=== PATIENT | male | born 1980 | race Caucasian/White ===

== ENCOUNTER 2019-05-11 15:14 | Emergency (ER) | payer MEDICAID, OTHER ==
[~2019-05-11] VITALS: Ht 175.3 cm; Wt 116.0 kg
[~2019-05-11 15:14] MED LIST: ARIP5TAB14 PO; ESCI20TA PO; HYDR-3972 PO
[2019-05-11 15:16] VITALS: BP 164/109
[2019-05-11] MEDS ORDERED: amox tr/potassium clavulanate 875/125mg TAB PO ONE (15:30)
[2019-05-11] MEDS ORDERED: AMOX-422 PO (15:31)
[2019-05-11] MEDS ORDERED: NAPR-56 PO (15:31)
[2019-05-11] MEDS ORDERED: HYDR-4383 PO (15:31)
[2019-05-15] MEDS ORDERED: DIPH25CA83 PO (15:16)
[2019-05-15] MEDS ORDERED: CLIN150C2 PO (15:19)
== END 2019-05-11 15:42 | disposition home or self-care (01) ==
LOC: ER 15:14
DX: K02.9 Dental caries, unspecified (principal); F10.10 Alcohol abuse, uncomplicated; F12.90 Cannabis use, unspecified, uncomplicated; Z60.2 Problems related to living alone; Z56.0 Unemployment, unspecified; Z79.899 Other long term (current) drug therapy; Y90.9 Presence of alcohol in blood, level not specified
CPT/HCPCS: 99283

== ENCOUNTER → 2019-05-15 | Emergency (ER) | payer MEDICAID ==
[~2019-05-15] VITALS: Ht 175.3 cm; Wt 115.5 kg
[~2019-05-15] MED LIST changes: +AMOX-422 PO; +CLIN150C2 PO; +DIPH25CA83 PO; +HYDR-4383 PO; +NAPR-56 PO; +PRED20TA PO; +diphenhydrAMINE 25mg capsule PO ONE
[2019-05-15 15:40] VITALS: BP 120/85
== END | disposition home or self-care (01) ==
LOC: ER 13:46
DX: L27.0 Generalized skin eruption due to drugs and medicaments taken internally (principal); T36.0X5A Adverse effect of penicillins, initial encounter; R06.02 Shortness of breath; F10.10 Alcohol abuse, uncomplicated; F12.90 Cannabis use, unspecified, uncomplicated; Z60.2 Problems related to living alone; Z56.0 Unemployment, unspecified; Z79.899 Other long term (current) drug therapy; Y90.9 Presence of alcohol in blood, level not specified; Y92.89 Other specified places as the place of occurrence of the external cause
CPT/HCPCS: 99283; Q0163

== ENCOUNTER 2019-05-17 11:42 | Emergency (ER) | payer MEDICAID ==
[~2019-05-17] VITALS: Ht 175.3 cm; Wt 115.0 kg
[~2019-05-17 11:42] MED LIST changes: -PRED20TA PO; -diphenhydrAMINE 25mg capsule PO ONE
[2019-05-17 11:54] VITALS: BP 169/120
[2019-05-17] MEDS ORDERED: methylPREDNISolone sod succ 125mg/2ml vial IV ONE (12:20)
[2019-05-17] MEDS ORDERED: methylPREDNISolone sod succ 125mg/2ml vial IM ONE (12:20)
[2019-05-17] MEDS ORDERED: PRED20TA PO (12:20)
== END 2019-05-17 12:36 | disposition home or self-care (01) ==
LOC: ER 11:43
DX: R21 Rash and other nonspecific skin eruption (principal); T36.0X5A Adverse effect of penicillins, initial encounter; F12.90 Cannabis use, unspecified, uncomplicated; Z56.0 Unemployment, unspecified; Z79.899 Other long term (current) drug therapy; Y92.89 Other specified places as the place of occurrence of the external cause
CPT/HCPCS: 96372; 99283; J2930

== ENCOUNTER 2019-05-27 23:00 | Emergency (ER) | payer MEDICAID ==
[~2019-05-27] VITALS: Ht 175.3 cm; Wt 113.0 kg
[~2019-05-27 23:00] MED LIST changes: -AMOX-422 PO; -CLIN150C2 PO
--- NOTE | 2019-05-27 23:21 | NUR ---
MARICRUZ LU AT BEDSIDE PATIENT STATES " I HAVE BEEN DRINKING THE HARD STUFF." PATIENT APPEARS TO HAVE BEEN ON A SOBRIETY PROGRAM AND HAD BEEN DRINKING, [facility] PA[facility] FOR [facility] "TRYING TO [facility]." WHEN THE PATIENT STARTED VOMITING, [facility] STATING PATIENT WAS VOMITING BLOOD, EMS DENIES SEEING BLOOD IN [facility], PATIENT HAS NOT VOMITED SINCE [facility] WILL CONTINUE TO MONITOR
[2019-05-27] MEDS ORDERED: normal saline 1000ML IV soln IV ONE (23:25)
[2019-05-27] MEDS ORDERED: proCHLORperazine 10 MG/2 ml inj IV ONE (23:25)
[2019-05-27 23:26] LABS: EOSINOPHILS # (AUTO) 0.5 X10'3 (0-0.9); NEUTROPHILS # (AUTO) 6.2 X10'3 (1.8-7.7); WHITE BLOOD COUNT 10.4 X10'3 (4.5-11.0)
[2019-05-27 23:28] LABS: BASOPHILS # (AUTO) 0.2 X10'3 (0-0.2); BASOPHILS % (AUTO) 1.5 % (0-1); EOSINOPHILS % (AUTO) 5.1 % (0-6); HEMATOCRIT 42.5 % (42.0-52.0); HEMOGLOBIN 14.9 g/dl (14.0-17.9); LYMPHOCYTES # (AUTO) 2.8 X10'3 (1.1-4.8); LYMPHOCYTES % (AUTO) 27.1 % (21-51); MEAN CORPUSCULAR HEMOGLOBIN 31.9 PG (27.0-31.0); MEAN CORPUSCULAR HGB CONC 35.2 g/dL (33.0-36.5); MEAN CORPUSCULAR VOLUME 90.6 FL (78-98); MEAN PLATELET VOLUME 8.3 FL (7.4-10.4); MONOCYTES # (AUTO) 0.7 X10'3 (0-0.9); MONOCYTES % (AUTO) 6.6 % (2-12); NEUTROPHILS % (AUTO) 59.7 % (42-75); PLATELET COUNT 277 X10'3 (140-440); RED BLOOD COUNT 4.69 X10'6 (4.70-6.10); RED CELL DISTRIBUTION WIDTH 14.2 % (11.5-14.5)
[2019-05-27 23:38] LABS: ALANINE AMINOTRANSFERASE 53 U/L (12-78); ALBUMIN 3.7 G/DL (3.4-5.0); ALBUMIN/GLOBULIN RATIO 0.9 (1.1-1.5); ALKALINE PHOSPHATASE 95 IU/L (46-116); ANION GAP 15 (8-16); ASPARTATE AMINO TRANSFERASE 5 U/L (10-37); BILIRUBIN,TOTAL 0.4 MG/DL (0.1-1.0); BLOOD UREA NITROGEN 13 MG/DL (7-18); BUN/CREATININE RATIO 10.2 (5.4-32.0); CALCIUM 8.3 MG/DL (8.5-10.1); CHLORIDE 106 MMOL/L (99-107); CREATININE 1.28 MG/DL (0.60-1.10); ETHANOL 0.179 GM/DL (0.0-0.010); GLUCOSE 141 MG/DL (70-104); LIPASE 81 U/L (73-393); POTASSIUM 3.9 MMOL/L (3.5-5.1); SODIUM 142 MMOL/L (135-145); TOTAL CARBON DIOXIDE 21.5 MMOL/L (24-32); TOTAL PROTEIN 7.9 G/DL (6.4-8.2); eGFR 63 ML/MIN
--- NOTE | 2019-05-28 00:25 | NUR ---
PATIENT IN BED LYING ON LEFT SIDE EYES CLOSED RR EVEN UN LABORED NO OBSERVABLE S/S OF ACUTE STRESS AT THIOS TIME WILL CONTINUE TO MONITOR
--- NOTE | 2019-05-28 02:35 | NUR ---
patient still un steady on feet not making sense, I have him back in bed eyes closed covers on rr even un labored no observable s/s of acute stress at this time, WILL CONTINUE TO MONITOR
[2019-05-28 03:20] LABS: CLARITY,URINE CLEAR (Clear); COLOR,URINE YELLOW (Yellow); GLUCOSE, URINE NEGATIVE (Neg); KETONES,URINE NEGATIVE (Neg); LEUKOCYTE ESTERASE ,URINE NEGATIVE (Neg); NITRITES, URINE NEGATIVE (Neg); OCCULT BLOOD,URINE SMALL (Neg); PH,URINE 7.5 (4.8-8.0); PROTEIN,URINE NEGATIVE (Neg); UROBILINOGEN,URINE 0.2 E.U/dL (0.2-1.0)
[2019-05-28 03:24] LABS: UA COLLECTION TYPE NON-SPECIFIED
[2019-05-28 03:25] LABS: WBC,URINE 0-4 /HPF (0-4)
[2019-05-28 03:26] LABS: BACTERIA,URINE NONE SEEN /HPF (Neg); SQUAMOUS EPITHELIAL CELL,UR NONE SEEN /LPF (FEW)
[2019-05-28 03:30] VITALS: BP 151/93
== END 2019-05-28 03:38 | disposition home or self-care (01) ==
LOC: ER 23:00
DX: F10.129 Alcohol abuse with intoxication, unspecified (principal); E86.0 Dehydration; R11.2 Nausea with vomiting, unspecified; F12.90 Cannabis use, unspecified, uncomplicated; Z60.2 Problems related to living alone; Z56.0 Unemployment, unspecified; Z79.899 Other long term (current) drug therapy; Y90.9 Presence of alcohol in blood, level not specified
CPT/HCPCS: 36415; 80053; 80320; 81001; 83690; 85025; 96361; 96374; 99283; J0780; J7030

== ENCOUNTER 2019-06-24 13:20 | Emergency (ER) | payer MEDICAID ==
[~2019-06-24] VITALS: Ht 175.3 cm; Wt 113.6 kg
[~2019-06-24 13:20] MED LIST changes: -NAPR-56 PO
[2019-06-24 13:37] VITALS: BP 165/102
[2019-06-24] MEDS ORDERED: morphine 4 MG/ML inj SYRINge IM ONE (13:50)
[2019-06-24] MEDS ORDERED: LIDOcaine 5% patch TP ONE (13:50)
[2019-06-24] MEDS ORDERED: ketorolac trometh. 30mg/ml inj. IM ONE (13:50)
== END 2019-06-24 15:07 | disposition home or self-care (01) ==
LOC: ER 13:23
DX: R07.81 Pleurodynia (principal); R06.02 Shortness of breath; F12.90 Cannabis use, unspecified, uncomplicated; F10.10 Alcohol abuse, uncomplicated; Z60.2 Problems related to living alone; Z56.0 Unemployment, unspecified; Z79.899 Other long term (current) drug therapy; W18.39XA Other fall on same level, initial encounter; Y93.89 Activity, other specified; Y92.89 Other specified places as the place of occurrence of the external cause; Y99.8 Other external cause status; Y90.9 Presence of alcohol in blood, level not specified
CPT/HCPCS: 71101; 96372; 99284; J1885; J2270

== ENCOUNTER 2019-06-27 12:19 | Emergency (ER) | payer MEDICAID ==
[~2019-06-27] VITALS: Ht 175.3 cm; Wt 112.2 kg
[2019-06-27] MEDS ORDERED: HYDR-4383 PO (12:57)
[2019-06-27 13:24] VITALS: BP 177/117
== END 2019-06-27 13:26 | disposition home or self-care (01) ==
LOC: ER 12:19
DX: R07.81 Pleurodynia (principal); F12.90 Cannabis use, unspecified, uncomplicated; Z56.0 Unemployment, unspecified; Z79.899 Other long term (current) drug therapy; X50.1XXA Overexertion from prolonged static or awkward postures, initial encounter; Y93.89 Activity, other specified; Y92.89 Other specified places as the place of occurrence of the external cause; Y99.9 Unspecified external cause status
CPT/HCPCS: 99283

== ENCOUNTER 2020-07-03 09:42 | Emergency (ER) | payer MEDICAID ==
[~2020-07-03] VITALS: Ht 172.7 cm; Wt 88.6 kg
[2020-07-03] MEDS ORDERED: ketorolac trometh inj. 60 MG/2 ML VIAL IM ONE (10:15)
[2020-07-03] MEDS ORDERED: morphine 10mg/ml inj. IV ONE (11:30)
[2020-07-03] MEDS ORDERED: iohexol 300mg/ml 100ml inj. ONE (11:45)
[2020-07-03 12:22] LABS: BASOPHILS % (AUTO) 0.3 % (0-1); EOSINOPHILS # (AUTO) 0.1 X10'3 (0-0.9); EOSINOPHILS % (AUTO) 1.5 % (0-6); HEMOGLOBIN 13.3 g/dl (14.0-17.9); LYMPHOCYTES % (AUTO) 10.2 % (21-51); MEAN CORPUSCULAR HEMOGLOBIN 31.5 PG (27.0-31.0); MEAN CORPUSCULAR VOLUME 92.7 FL (78-98); MEAN PLATELET VOLUME 8.3 FL (7.4-10.4); MONOCYTES # (AUTO) 0.8 X10'3 (0-0.9); MONOCYTES % (AUTO) 7.9 % (2-12); NEUTROPHILS # (AUTO) 7.9 X10'3 (1.8-7.7); NEUTROPHILS % (AUTO) 80.1 % (42-75); PLATELET COUNT 299 X10'3 (140-440); RED BLOOD COUNT 4.21 X10'6 (4.70-6.10); RED CELL DISTRIBUTION WIDTH 13.2 % (11.5-14.5); WHITE BLOOD COUNT 9.9 X10'3 (4.5-11.0)
[2020-07-03 12:35] LABS: ALANINE AMINOTRANSFERASE 29 U/L (12-78); ALBUMIN 3.4 G/DL (3.4-5.0); ALBUMIN/GLOBULIN RATIO 0.9 (1.1-1.5); ALKALINE PHOSPHATASE 150 IU/L (46-116); ANION GAP 9 (8-16); ASPARTATE AMINO TRANSFERASE 12 U/L (10-37); BILIRUBIN,TOTAL 0.4 MG/DL (0.1-1.0); BLOOD UREA NITROGEN 20 MG/DL (7-18); CALCIUM 9.2 MG/DL (8.5-10.1); CHLORIDE 104 MMOL/L (99-107); GLUCOSE 113 MG/DL (70-104); POTASSIUM 3.9 MMOL/L (3.5-5.1); SODIUM 138 MMOL/L (135-145); TOTAL CARBON DIOXIDE 25.1 MMOL/L (24-32); TOTAL PROTEIN 7.4 G/DL (6.4-8.2); eGFR 83 ML/MIN
[2020-07-03] MEDS ORDERED: oxyCODONE/APAP 5-325mg tablet PO ONE (12:50)
[2020-07-03] MEDS ORDERED: IBUP-1986 PO ×2 (13:00→13:25)
[2020-07-03] MEDS ORDERED: LIDO700A32 TOP ×2 (13:00→13:25)
[2020-07-03] MEDS ORDERED: OXYC-145 PO ×2 (13:00→13:25)
[2020-07-03 13:38] VITALS: BP 138/106
== END 2020-07-03 13:28 | disposition home or self-care (01) ==
LOC: ER 09:43
DX: S22.41XA Multiple fractures of ribs, right side, initial encounter for closed fracture (principal); S05.11XA Contusion of eyeball and orbital tissues, right eye, initial encounter; F12.90 Cannabis use, unspecified, uncomplicated; Z72.89 Other problems related to lifestyle; Z56.0 Unemployment, unspecified; Z79.899 Other long term (current) drug therapy; V13.4XXA Pedal cycle driver injured in collision with car, pick-up truck or van in traffic accident, initial encounter; Y93.89 Activity, other specified; Y92.89 Other specified places as the place of occurrence of the external cause; Y99.8 Other external cause status
CPT/HCPCS: 36415; 70450; 71101; 71260; 72125; 74177; 80053; 85025; 96372; 96374; 99285; J1885; J2270; Q9967

== ENCOUNTER 2020-07-07 11:22 | Emergency (ER) | payer MEDICAID ==
[~2020-07-07] VITALS: Ht 172.7 cm; Wt 88.6 kg
[~2020-07-07 11:22] MED LIST changes: +IBUP-1986 PO; +LIDO700A32 TOP; +OXYC-145 PO
[2020-07-07 11:33] VITALS: BP 170/117
[2020-07-07] MEDS ORDERED: HYDR-3972 PO (11:39)
== END 2020-07-07 11:47 | disposition home or self-care (01) ==
LOC: ER 11:23
DX: S22.41XS Multiple fractures of ribs, right side, sequela (principal); F12.90 Cannabis use, unspecified, uncomplicated; Z72.89 Other problems related to lifestyle; Z79.899 Other long term (current) drug therapy; Z56.0 Unemployment, unspecified; X58.XXXS Exposure to other specified factors, sequela
CPT/HCPCS: 99283

== ENCOUNTER 2020-07-16 20:16 | Emergency (ER) | payer MEDICAID ==
[~2020-07-16] VITALS: Ht 172.7 cm; Wt 88.0 kg
[2020-07-16 20:27] VITALS: BP 120/79
[2020-07-16] MEDS ORDERED: ibuprofen tablet 400 MG TABLET PO ONE (20:35)
== END 2020-07-16 20:46 ==
LOC: ER 20:16
DX: R07.81 Pleurodynia (principal); F10.129 Alcohol abuse with intoxication, unspecified; F12.90 Cannabis use, unspecified, uncomplicated; F15.90 Other stimulant use, unspecified, uncomplicated; Z72.89 Other problems related to lifestyle; Z60.2 Problems related to living alone; Z56.0 Unemployment, unspecified; Z79.899 Other long term (current) drug therapy; Y90.9 Presence of alcohol in blood, level not specified
CPT/HCPCS: 99284

== ENCOUNTER 2020-07-21 17:29 | Emergency (ER) | payer MEDICAID ==
[~2020-07-21] VITALS: Ht 172.7 cm; Wt 88.9 kg
[2020-07-21] MEDS ORDERED: DOXY100C43 PO (18:24)
[2020-07-21] MEDS ORDERED: KETO10TA2 PO (18:24)
[2020-07-21 18:33] VITALS: BP 160/90
== END 2020-07-21 18:34 | disposition home or self-care (01) ==
LOC: ER 17:30
DX: S22.41XA Multiple fractures of ribs, right side, initial encounter for closed fracture (principal); J40 Bronchitis, not specified as acute or chronic; F12.90 Cannabis use, unspecified, uncomplicated; F15.90 Other stimulant use, unspecified, uncomplicated; Z56.0 Unemployment, unspecified; Z72.89 Other problems related to lifestyle; Z79.2 Long term (current) use of antibiotics; Z79.899 Other long term (current) drug therapy; V19.3XXA Pedal cyclist (driver) (passenger) injured in unspecified nontraffic accident, initial encounter; Y93.89 Activity, other specified; Y92.89 Other specified places as the place of occurrence of the external cause; Y99.8 Other external cause status
CPT/HCPCS: 71046; 99283

== ENCOUNTER 2020-07-25 17:24 | Emergency (ER) | payer MEDICAID ==
[~2020-07-25] VITALS: Ht 177.8 cm; Wt 74.0 kg
[~2020-07-25 17:24] MED LIST changes: +DOXY100C43 PO; +KETO10TA2 PO
[2020-07-25 17:26] VITALS: BP 138/86
[2020-07-25] MEDS ORDERED: bacitracin 15gm ointment TP ONE (17:35)
[2020-07-25] MEDS ORDERED: TETanus/Pertussis (Acell)/Diphther VAC/PF (Tdap-Adult) 0.5ml syringe IMVAC ONE (17:35)
[2020-07-25] MEDS ORDERED: haloperidol lactate 5mg/ml inj IM ONE (17:35)
[2020-07-25] MEDS ORDERED: diphenhydrAMINE 50 mg/ml inj IM ONE (17:35)
[2020-07-25] MEDS ORDERED: haloperidol lactate 5mg/ml inj ONE (17:51)
[2020-07-25] MEDS ORDERED: LIDOcaine 1% W/epiNEPHrine 1:200,000 10ml vial IJ ONE (19:00)
== END 2020-07-26 02:48 ==
LOC: ER 17:24
DX: S01.81XA Laceration without foreign body of other part of head, initial encounter (principal); F12.90 Cannabis use, unspecified, uncomplicated; F15.90 Other stimulant use, unspecified, uncomplicated; Z56.0 Unemployment, unspecified; Z72.89 Other problems related to lifestyle; Z88.1 Allergy status to other antibiotic agents; Z88.8 Allergy status to other drugs, medicaments and biological substances; Z79.899 Other long term (current) drug therapy; V87.8XXA Person injured in other specified noncollision transport accidents involving motor vehicle (traffic), initial encounter; Y93.89 Activity, other specified; Y92.89 Other specified places as the place of occurrence of the external cause; Y99.8 Other external cause status
CPT/HCPCS: 12013; 70450; 72125; 90471; 90715; 96372; 99285; J1200; J1630; 12011

== ENCOUNTER 2020-07-26 04:31 | Emergency (ER) | payer MEDICAID ==
[~2020-07-26] VITALS: Ht 172.7 cm; Wt 86.4 kg
[2020-07-26] MEDS ORDERED: metoprolol tartrate 50mg tablet PO ONE (06:15)
[2020-07-26 06:18] LABS: BASOPHILS % (AUTO) 0.4 % (0-1); EOSINOPHILS # (AUTO) 0.1 X10'3 (0-0.9); EOSINOPHILS % (AUTO) 0.6 % (0-6); HEMATOCRIT 38.3 % (42.0-52.0); HEMOGLOBIN 12.9 g/dl (14.0-17.9); LYMPHOCYTES # (AUTO) 0.9 X10'3 (1.1-4.8); LYMPHOCYTES % (AUTO) 6.8 % (21-51); MEAN CORPUSCULAR HEMOGLOBIN 31.2 PG (27.0-31.0); MEAN CORPUSCULAR HGB CONC 33.6 g/dL (33.0-36.5); MEAN CORPUSCULAR VOLUME 92.8 FL (78-98); MEAN PLATELET VOLUME 7.9 FL (7.4-10.4); MONOCYTES # (AUTO) 0.6 X10'3 (0-0.9); MONOCYTES % (AUTO) 4.6 % (2-12); NEUTROPHILS # (AUTO) 11.2 X10'3 (1.8-7.7); NEUTROPHILS % (AUTO) 87.6 % (42-75); PLATELET COUNT 297 X10'3 (140-440); RED BLOOD COUNT 4.13 X10'6 (4.70-6.10); RED CELL DISTRIBUTION WIDTH 13.2 % (11.5-14.5); WHITE BLOOD COUNT 12.8 X10'3 (4.5-11.0)
[2020-07-26 06:20] LABS: ALANINE AMINOTRANSFERASE 28 U/L (12-78); ALBUMIN 3.4 G/DL (3.4-5.0); ALBUMIN/GLOBULIN RATIO 0.8 (1.1-1.5); ALKALINE PHOSPHATASE 137 IU/L (46-116); ANION GAP 8 (8-16); ASPARTATE AMINO TRANSFERASE 43 U/L (10-37); BILIRUBIN,TOTAL 0.3 MG/DL (0.1-1.0); BLOOD UREA NITROGEN 18 MG/DL (7-18); BUN/CREATININE RATIO 18.4 (5.4-32.0); CALCIUM 8.9 MG/DL (8.5-10.1); CHLORIDE 105 MMOL/L (99-107); CREATININE 0.98 MG/DL (0.60-1.10); GLUCOSE 96 MG/DL (70-104); POTASSIUM 4.7 MMOL/L (3.5-5.1); SODIUM 140 MMOL/L (135-145); TOTAL PROTEIN 7.5 G/DL (6.4-8.2); eGFR 85 ML/MIN
[2020-07-26 07:10] LABS: ETHANOL 0.012 GM/DL (0.0-0.010)
[2020-07-26 07:40] LABS: URINE AMPHETAMINE SCREEN POSITIVE (Neg); URINE BARBITUATE SCREEN NEGATIVE (Neg); URINE BENZODIAZEPINES SCREEN NEGATIVE (Neg); URINE CANNABINOID SCREEN POSITIVE (Neg); URINE COCAINE SCREEN NEGATIVE (Neg); URINE METHADONE SCREEN NEGATIVE (Neg); URINE OPIATE SCREEN NEGATIVE (Neg); URINE PHENCYCLIDINE SCREEN NEGATIVE (Neg)
[2020-07-26 08:42] VITALS: BP 136/76
== END 2020-07-26 08:43 | disposition home or self-care (01) ==
LOC: ER 04:32
DX: S60.011A Contusion of right thumb without damage to nail, initial encounter (principal); S20.211A Contusion of right front wall of thorax, initial encounter; S00.83XA Contusion of other part of head, initial encounter; I10 Essential (primary) hypertension; F15.90 Other stimulant use, unspecified, uncomplicated; F10.10 Alcohol abuse, uncomplicated; F17.200 Nicotine dependence, unspecified, uncomplicated; F12.90 Cannabis use, unspecified, uncomplicated; Z86.19 Personal history of other infectious and parasitic diseases; Z72.89 Other problems related to lifestyle; Z60.2 Problems related to living alone; Z59.0 Homelessness; Z88.1 Allergy status to other antibiotic agents; Z88.8 Allergy status to other drugs, medicaments and biological substances; Z79.2 Long term (current) use of antibiotics; Z79.899 Other long term (current) drug therapy; X58.XXXA Exposure to other specified factors, initial encounter; Y93.89 Activity, other specified; Y92.89 Other specified places as the place of occurrence of the external cause; Y99.8 Other external cause status; Y90.0 Blood alcohol level of less than 20 mg/100 ml
CPT/HCPCS: 36415; 71045; 73140; 80053; 80305; 80320; 84484; 85025; 93005; 99285

== ENCOUNTER 2020-08-06 13:00 | Emergency (ER) | payer MEDICAID ==
[~2020-08-06] VITALS: Ht 172.7 cm; Wt 82.5 kg
[~2020-08-06 13:00] MED LIST changes: -DOXY100C43 PO
[2020-08-06 13:13] VITALS: BP 159/94
--- NOTE | 2020-08-06 14:15 | NUR ---
PATIENT IS HERE FOR SUTURE REMOVAL FROM [facility]. STATES THE SUTURES HAVE BEEN THERE FOR APPROX 11 DAYS.
== END 2020-08-06 15:18 | disposition home or self-care (01) ==
LOC: ER 13:00
DX: S01.81XD Laceration without foreign body of other part of head, subsequent encounter (principal); I10 Essential (primary) hypertension; F12.90 Cannabis use, unspecified, uncomplicated; F15.90 Other stimulant use, unspecified, uncomplicated; Z48.02 Encounter for removal of sutures; Z86.19 Personal history of other infectious and parasitic diseases; Z72.89 Other problems related to lifestyle; Z60.2 Problems related to living alone; Z56.0 Unemployment, unspecified; Z88.1 Allergy status to other antibiotic agents; Z88.8 Allergy status to other drugs, medicaments and biological substances; Z79.899 Other long term (current) drug therapy; X58.XXXD Exposure to other specified factors, subsequent encounter
CPT/HCPCS: 99281

== ENCOUNTER 2020-08-30 16:09 | Emergency (ER) | payer MEDICAID ==
[~2020-08-30] VITALS: Ht 172.7 cm; Wt 100.0 kg
[2020-08-30 17:02] VITALS: BP 158/106
== END 2020-08-30 19:33 | disposition home or self-care (01) ==
LOC: ER 16:10
DX: Z02.89 Encounter for other administrative examinations (principal); F12.10 Cannabis abuse, uncomplicated; F15.10 Other stimulant abuse, uncomplicated; I10 Essential (primary) hypertension; Z56.0 Unemployment, unspecified; Z88.1 Allergy status to other antibiotic agents; Z79.899 Other long term (current) drug therapy
CPT/HCPCS: 99281

== ENCOUNTER 2020-10-08 14:24 | Emergency (ER) | payer MEDICAID ==
[~2020-10-08] VITALS: Ht 172.7 cm; Wt 89.3 kg
[2020-10-08] MEDS ORDERED: ondansetron/PF 4mg/2ml inj IV ONE (16:45)
[2020-10-08] MEDS ORDERED: normal saline 1000ML IV soln IVB ONE (16:45)
[2020-10-08 17:23] LABS: BASOPHILS % (AUTO) 0.7 % (0-1); EOSINOPHILS # (AUTO) 0.2 X10'3 (0-0.9); EOSINOPHILS % (AUTO) 2.6 % (0-6); HEMATOCRIT 39.2 % (42.0-52.0); HEMOGLOBIN 13.3 g/dl (14.0-17.9); LYMPHOCYTES # (AUTO) 2.1 X10'3 (1.1-4.8); LYMPHOCYTES % (AUTO) 27.9 % (21-51); MEAN CORPUSCULAR HEMOGLOBIN 31.8 PG (27.0-31.0); MEAN CORPUSCULAR VOLUME 93.3 FL (78-98); MEAN PLATELET VOLUME 8.1 FL (7.4-10.4); MONOCYTES # (AUTO) 0.6 X10'3 (0-0.9); MONOCYTES % (AUTO) 7.3 % (2-12); NEUTROPHILS # (AUTO) 4.6 X10'3 (1.8-7.7); NEUTROPHILS % (AUTO) 61.5 % (42-75); PLATELET COUNT 245 X10'3 (140-440); RED CELL DISTRIBUTION WIDTH 13.1 % (11.5-14.5); WHITE BLOOD COUNT 7.5 X10'3 (4.5-11.0)
[2020-10-08 17:40] LABS: ALANINE AMINOTRANSFERASE 27 U/L (12-78); ALBUMIN 4.1 G/DL (3.4-5.0); ALBUMIN/GLOBULIN RATIO 1.1 (1.1-1.5); ALKALINE PHOSPHATASE 140 IU/L (46-116); ANION GAP 10 (8-16); ASPARTATE AMINO TRANSFERASE 11 U/L (10-37); BILIRUBIN,TOTAL 0.2 MG/DL (0.1-1.0); BLOOD UREA NITROGEN 15 MG/DL (7-18); BUN/CREATININE RATIO 14.4 (5.4-32.0); CALCIUM 8.8 MG/DL (8.5-10.1); CHLORIDE 107 MMOL/L (99-107); CREATININE 1.04 MG/DL (0.60-1.10); GLUCOSE 87 MG/DL (70-104); LIPASE 77 U/L (73-393); POTASSIUM 4.3 MMOL/L (3.5-5.1); SODIUM 144 MMOL/L (135-145); TOTAL CARBON DIOXIDE 26.7 MMOL/L (24-32); TOTAL PROTEIN 7.7 G/DL (6.4-8.2); eGFR 79 ML/MIN
[2020-10-08] MEDS ORDERED: ONDA4TAB6 PO (18:06)
--- NOTE | 2020-10-08 18:18 | NUR ---
report given to RN, care transferred
[2020-10-08 19:06] VITALS: BP 133/93
== END 2020-10-08 18:28 | disposition home or self-care (01) ==
LOC: ER 14:25
DX: A08.4 Viral intestinal infection, unspecified (principal); R11.2 Nausea with vomiting, unspecified; I10 Essential (primary) hypertension; F12.90 Cannabis use, unspecified, uncomplicated; F15.90 Other stimulant use, unspecified, uncomplicated; Z86.19 Personal history of other infectious and parasitic diseases; Z72.89 Other problems related to lifestyle; Z60.2 Problems related to living alone; Z56.0 Unemployment, unspecified; Z88.1 Allergy status to other antibiotic agents; Z88.8 Allergy status to other drugs, medicaments and biological substances; Z79.899 Other long term (current) drug therapy
CPT/HCPCS: 36415; 80053; 83690; 85025; 96361; 96374; 99284; J2405; J7030

== ENCOUNTER 2020-12-02 19:34 | Emergency (ER) | payer MEDICAID ==
[~2020-12-02] VITALS: Ht 172.7 cm; Wt 90.9 kg
[~2020-12-02 19:34] MED LIST changes: +ONDA4TAB6 PO
[2020-12-02 19:41] VITALS: BP 157/83
[2020-12-02] MEDS ORDERED: bacitracin 15gm ointment TP ONE (20:05)
[2020-12-02] MEDS ORDERED: CEPH250T PO (20:10)
[2020-12-02] MEDS ORDERED: BACI1PAC7 TOP (20:10)
[2020-12-02] MEDS ORDERED: SULF1TAB49 PO (20:10)
== END 2020-12-02 20:22 | disposition home or self-care (01) ==
LOC: ER 19:34
DX: S80.211A Abrasion, right knee, initial encounter (principal); I10 Essential (primary) hypertension; F12.90 Cannabis use, unspecified, uncomplicated; F15.90 Other stimulant use, unspecified, uncomplicated; Z86.19 Personal history of other infectious and parasitic diseases; Z72.89 Other problems related to lifestyle; Z60.2 Problems related to living alone; Z56.0 Unemployment, unspecified; Z88.1 Allergy status to other antibiotic agents; Z88.8 Allergy status to other drugs, medicaments and biological substances; Z79.2 Long term (current) use of antibiotics; Z79.899 Other long term (current) drug therapy; X58.XXXA Exposure to other specified factors, initial encounter; Y93.89 Activity, other specified; Y92.89 Other specified places as the place of occurrence of the external cause; Y99.8 Other external cause status
CPT/HCPCS: 99283

== ENCOUNTER 2021-03-05 17:05 | Emergency (ER) | payer MEDICAID ==
[~2021-03-05] VITALS: Ht 172.7 cm; Wt 81.8 kg
[2021-03-05 17:32] VITALS: BP 141/90
[2021-03-05] MEDS ORDERED: SULF1TAB45 PO (17:39)
[2021-03-05] MEDS ORDERED: CEPH250T PO (17:39)
== END 2021-03-05 17:50 | disposition home or self-care (01) ==
LOC: ER 17:06
DX: L03.113 Cellulitis of right upper limb (principal); L03.114 Cellulitis of left upper limb; L03.115 Cellulitis of right lower limb; L03.116 Cellulitis of left lower limb; I10 Essential (primary) hypertension; F12.10 Cannabis abuse, uncomplicated; F15.10 Other stimulant abuse, uncomplicated; Z88.1 Allergy status to other antibiotic agents; Z79.899 Other long term (current) drug therapy
CPT/HCPCS: 99283

== ENCOUNTER 2021-03-13 23:06 | Emergency (ER) | payer MEDICAID ==
[~2021-03-13] VITALS: Ht 172.7 cm; Wt 84.1 kg
[~2021-03-13 23:06] MED LIST changes: +CEPH250T PO; +SULF1TAB45 PO
[2021-03-13 23:18] VITALS: BP 150/94
[2021-03-13] MEDS ORDERED: chlordiazePOXIDE 25mg capsule PO ONE (23:45)
[2021-03-14] MEDS ORDERED: chlordiazePOXIDE 5mg capsule PO ONE (00:20)
== END 2021-03-14 01:19 | disposition home or self-care (01) ==
LOC: ER 23:06
DX: F10.239 Alcohol dependence with withdrawal, unspecified (principal); I10 Essential (primary) hypertension; F12.10 Cannabis abuse, uncomplicated; F15.10 Other stimulant abuse, uncomplicated; Z59.00 Homelessness unspecified; Z88.0 Allergy status to penicillin; Z88.8 Allergy status to other drugs, medicaments and biological substances; Z79.899 Other long term (current) drug therapy
CPT/HCPCS: 99283

== ENCOUNTER 2021-03-25 10:56 | Emergency (ER) | payer MEDICAID ==
[~2021-03-25] VITALS: Ht 172.7 cm; Wt 84.0 kg
[~2021-03-25 10:56] MED LIST changes: -CEPH250T PO; -SULF1TAB45 PO
[2021-03-25 10:59] VITALS: BP 158/100
[2021-03-25] MEDS ORDERED: TRAM50TA2 PO (12:30)
[2021-03-25] MEDS ORDERED: traMADol 50MG tablet PO ONE (12:35)
== END 2021-03-25 13:53 | disposition home or self-care (01) ==
LOC: ER 10:57
DX: S93.402A Sprain of unspecified ligament of left ankle, initial encounter (principal); M79.672 Pain in left foot; I10 Essential (primary) hypertension; F12.90 Cannabis use, unspecified, uncomplicated; F15.90 Other stimulant use, unspecified, uncomplicated; Z86.19 Personal history of other infectious and parasitic diseases; Z72.89 Other problems related to lifestyle; Z60.2 Problems related to living alone; Z56.0 Unemployment, unspecified; Z88.1 Allergy status to other antibiotic agents; Z88.8 Allergy status to other drugs, medicaments and biological substances; Z79.899 Other long term (current) drug therapy; X58.XXXA Exposure to other specified factors, initial encounter; Y93.89 Activity, other specified; Y92.89 Other specified places as the place of occurrence of the external cause; Y99.8 Other external cause status
CPT/HCPCS: 73610; 99283

== ENCOUNTER 2021-04-07 02:14 | Emergency (ER) | payer MEDICAID ==
[~2021-04-07] VITALS: Ht 172.7 cm; Wt 81.4 kg
[~2021-04-07 02:14] MED LIST changes: +TRAM50TA2 PO
[2021-04-07 02:27] VITALS: BP 152/102
[2021-04-07] MEDS ORDERED: CLIN150C8 PO (05:44)
[2021-04-07] MEDS ORDERED: clindamycin 150mg capsule PO ONE (05:45)
[2021-04-07] MEDS ORDERED: acetaminophen 325mg tablet PO ONE (05:45)
== END 2021-04-07 06:23 | disposition home or self-care (01) ==
LOC: ER 02:14
DX: K04.7 Periapical abscess without sinus (principal); K08.89 Other specified disorders of teeth and supporting structures; R22.0 Localized swelling, mass and lump, head; I10 Essential (primary) hypertension; F12.90 Cannabis use, unspecified, uncomplicated; Z86.19 Personal history of other infectious and parasitic diseases; Z72.89 Other problems related to lifestyle; Z60.2 Problems related to living alone; Z56.0 Unemployment, unspecified; Z88.1 Allergy status to other antibiotic agents; Z88.8 Allergy status to other drugs, medicaments and biological substances; Z79.2 Long term (current) use of antibiotics; Z79.899 Other long term (current) drug therapy
CPT/HCPCS: 41800; 99284

== ENCOUNTER 2021-05-16 09:13 | Emergency (ER) | payer MEDICAID ==
[~2021-05-16] VITALS: Ht 172.7 cm; Wt 77.7 kg
[~2021-05-16 09:13] MED LIST changes: +CLIN150C8 PO; -TRAM50TA2 PO
[2021-05-16 09:16] VITALS: BP 143/98
[2021-05-16] MEDS ORDERED: sulfamethoxazole/trimethoprim DS (800/160mg) tablet PO ONE (10:00)
[2021-05-16] MEDS ORDERED: naproxen 500mg tablet PO ONE (10:00)
[2021-05-16] MEDS ORDERED: NAPR-56 PO (10:02)
[2021-05-16] MEDS ORDERED: SULF1TAB49 PO (10:02)
== END 2021-05-16 10:19 | disposition home or self-care (01) ==
LOC: ER 09:14
DX: L03.113 Cellulitis of right upper limb (principal); L03.114 Cellulitis of left upper limb; I10 Essential (primary) hypertension; F12.90 Cannabis use, unspecified, uncomplicated; Z72.89 Other problems related to lifestyle; Z56.0 Unemployment, unspecified; Z59.00 Homelessness unspecified; Z86.19 Personal history of other infectious and parasitic diseases; Z88.1 Allergy status to other antibiotic agents; Z88.8 Allergy status to other drugs, medicaments and biological substances; Z79.2 Long term (current) use of antibiotics; Z79.899 Other long term (current) drug therapy
CPT/HCPCS: 99283

== ENCOUNTER 2021-06-26 14:59 | Emergency (ER) | payer MEDICAID ==
[~2021-06-26] VITALS: Ht 172.7 cm; Wt 78.4 kg
[2021-06-26 15:06] VITALS: BP 131/92
== END 2021-06-26 21:30 | disposition left against medical advice (07) ==
LOC: ER 14:59
DX: S81.812A Laceration without foreign body, left lower leg, initial encounter (principal); Z53.21 Procedure and treatment not carried out due to patient leaving prior to being seen by health care provider; W26.8XXA Contact with other sharp object(s), not elsewhere classified, initial encounter; Y93.89 Activity, other specified; Y92.89 Other specified places as the place of occurrence of the external cause; Y99.8 Other external cause status

== ENCOUNTER 2021-07-04 15:21 | Emergency (ER) | payer MEDICAID ==
[~2021-07-04] VITALS: Ht 172.7 cm; Wt 79.5 kg
[2021-07-04 16:07] VITALS: BP 169/97
[2021-07-04] MEDS ORDERED: FLUT16SP2 BOTHNARES (16:13)
[2021-07-04] MEDS ORDERED: SULF1TAB49 PO (16:13)
[2021-07-04] MEDS ORDERED: MUPI22OI30 TOP (16:13)
[2021-07-04] MEDS ORDERED: TETanus/Pertussis (Acell)/Diphther VAC/PF (Tdap-Adult) 0.5ml syringe IMVAC ONE (16:20)
== END 2021-07-04 16:52 | disposition home or self-care (01) ==
LOC: ER 15:21
DX: S81.812A Laceration without foreign body, left lower leg, initial encounter (principal); J32.9 Chronic sinusitis, unspecified; I10 Essential (primary) hypertension; Z59.00 Homelessness unspecified; X58.XXXA Exposure to other specified factors, initial encounter; Y93.89 Activity, other specified; Y92.89 Other specified places as the place of occurrence of the external cause; Y99.8 Other external cause status
CPT/HCPCS: 90471; 90715; 96372; 99283

== ENCOUNTER 2021-07-07 17:47 | Emergency (ER) | payer MEDICAID ==
[~2021-07-07] VITALS: Ht 172.7 cm; Wt 80.0 kg
[~2021-07-07 17:47] MED LIST changes: +FLUT16SP2 BOTHNARES; +MUPI22OI30 TOP; +SULF1TAB49 PO
[2021-07-07] MEDS ORDERED: NAPR-56 PO (18:42)
[2021-07-07] MEDS ORDERED: HYDR-3965 PO (18:42)
[2021-07-07] MEDS ORDERED: HYDROcodone/acetaminophen 10/325mg tab PO ONE (18:45)
--- NOTE | 2021-07-07 18:48 | NUR ---
PT ROOMED. ASSUMED CARE OF PT.
[2021-07-07 19:31] VITALS: BP 156/101
== END 2021-07-07 19:33 | disposition home or self-care (01) ==
LOC: ER 17:47
DX: S89.91XA Unspecified injury of right lower leg, initial encounter (principal); M25.561 Pain in right knee; I10 Essential (primary) hypertension; F12.90 Cannabis use, unspecified, uncomplicated; Z86.19 Personal history of other infectious and parasitic diseases; Z72.89 Other problems related to lifestyle; Z60.2 Problems related to living alone; Z59.00 Homelessness unspecified; Z56.0 Unemployment, unspecified; Z88.1 Allergy status to other antibiotic agents; Z88.8 Allergy status to other drugs, medicaments and biological substances; Z79.2 Long term (current) use of antibiotics; Z79.899 Other long term (current) drug therapy
CPT/HCPCS: 29505; 99283

== ENCOUNTER 2021-11-12 17:18 | Inpatient (IN) | payer MEDICAID ==
[~2021-11-12] VITALS: Ht 172.7 cm; Wt 74.2 kg
[~2021-11-12 17:18] MED LIST changes: -MUPI22OI30 TOP; -SULF1TAB49 PO
[2021-11-12] MEDS ORDERED: diphenhydrAMINE 50 mg/ml inj IV ONE (20:40)
[2021-11-12] MEDS ORDERED: metoclopramide 5 mg/ml inj IV ONE (20:40)
[2021-11-12] MEDS ORDERED: normal saline 1000ML IV soln IVB ONE (20:40)
[2021-11-12 20:54] LABS: BASOPHILS % (AUTO) 0.2 % (0-1); EOSINOPHILS % (AUTO) 0.2 % (0-6); HEMATOCRIT 39.1 % (42.0-52.0); HEMOGLOBIN 13.7 g/dl (14.0-17.9); LYMPHOCYTES # (AUTO) 0.7 X10'3 (1.1-4.8); LYMPHOCYTES % (AUTO) 7.2 % (21-51); MEAN CORPUSCULAR HEMOGLOBIN 32.1 PG (27.0-31.0); MEAN CORPUSCULAR HGB CONC 35.2 g/dL (33.0-36.5); MEAN CORPUSCULAR VOLUME 91.4 FL (78-98); MEAN PLATELET VOLUME 8.8 FL (7.4-10.4); MONOCYTES # (AUTO) 0.4 X10'3 (0-0.9); MONOCYTES % (AUTO) 4.7 % (2-12); NEUTROPHILS # (AUTO) 8.2 X10'3 (1.8-7.7); NEUTROPHILS % (AUTO) 87.7 % (42-75); PLATELET COUNT 303 X10'3 (140-440); RED BLOOD COUNT 4.27 X10'6 (4.70-6.10); RED CELL DISTRIBUTION WIDTH 12.8 % (11.5-14.5); WHITE BLOOD COUNT 9.4 X10'3 (4.5-11.0)
[2021-11-12 21:02] LABS: ALANINE AMINOTRANSFERASE 25 U/L (12-78); ALBUMIN 4.1 G/DL (3.4-5.0); ALBUMIN/GLOBULIN RATIO 1.1 (1.1-1.5); ALKALINE PHOSPHATASE 72 IU/L (46-116); ANION GAP 18 (8-16); ASPARTATE AMINO TRANSFERASE 13 U/L (10-37); BILIRUBIN,TOTAL 0.5 MG/DL (0.1-1.0); BLOOD UREA NITROGEN 70 MG/DL (7-18); BUN/CREATININE RATIO 12.6 (5.4-32.0); CALCIUM 8.6 MG/DL (8.5-10.1); CHLORIDE 100 MMOL/L (99-107); CREATININE 5.55 MG/DL (0.60-1.10); GLUCOSE 106 MG/DL (70-104); LIPASE 53 U/L (73-393); POTASSIUM 3.6 MMOL/L (3.5-5.1); SODIUM 145 MMOL/L (135-145); TOTAL CARBON DIOXIDE 27.5 MMOL/L (24-32); eGFR 11 ML/MIN
[2021-11-12 23:15] LABS: CREATINE KINASE 288 U/L (39-308)
[2021-11-12] MEDS ORDERED: mag hydrox/Alum hydrox/simeth 30ml oral suspension PO PRN (23:50)
[2021-11-12] MEDS ORDERED: POTASSIUM BICARB 20meq eff tab 20 MEQ TABLET.EFF PO PRN (23:50)
[2021-11-12] MEDS ORDERED: acetaminophen 325mg tablet PO PRN (23:50)
[2021-11-12] MEDS ORDERED: HYDROcodone/acetaminophen 5mg/325mg tablet PO PRN (23:50)
[2021-11-12] MEDS ORDERED: magnesium hydroxide 30ml (MOM) UD suspension PO PRN (23:50)
[2021-11-12] MEDS ORDERED: magnesium Cl slow-release 64mg tablet PO PRN (23:50)
[2021-11-12] MEDS ORDERED: magnesium 2GM in 50ml NS 50 ML IV PRN (23:50)
[2021-11-12] MEDS ORDERED: HYDROcodone/acetaminophen 10/325mg tab PO PRN (23:50)
[2021-11-12] MEDS ORDERED: magnesium 4gm in 100ml NS 100 ML IV PRN (23:50)
[2021-11-12] MEDS ORDERED: potassium CL 10mEq/100ml bag 100 ML IV PRN (23:50)
[2021-11-13] VITALS (7 sets, daily range): BP systolic 110–149; BP diastolic 58–97
--- NOTE | 2021-11-13 01:00 | NUR ---
Patient in room ORTHO 4014. I have received report from LALITHA Rivers and had the opportunity to ask questions and assume patient care.
--- NOTE | 2021-11-13 01:35 | NUR ---
[facility], vitals done and urine collected. Gave him the call light and instructed him not to get out of bed on his own.
[2021-11-13] MEDS: normal saline 1000ml 1,000 ML IV SCH ×3 (01:59→20:32)
[2021-11-13 02:21] LABS: CLARITY,URINE CLEAR (Clear); COLOR,URINE YELLOW (Yellow); GLUCOSE, URINE NEGATIVE (Neg); KETONES,URINE TRACE mg/dl (Neg); LEUKOCYTE ESTERASE ,URINE NEGATIVE (Neg); NITRITES, URINE NEGATIVE (Neg); OCCULT BLOOD,URINE NEGATIVE (Neg); PH,URINE 5.5 (4.8-8.0); PROTEIN,URINE NEGATIVE (Neg); UA COLLECTION TYPE CLN CATCH MIDSTREAM; UROBILINOGEN,URINE 0.2 E.U/dL (0.2-1.0)
[2021-11-13] MEDS ORDERED: LISI10TA27 PO (04:13)
--- NOTE | 2021-11-13 06:44 | NUR ---
Problems reprioritized. Patient report given, questions answered & plan of care reviewed with LALITHA Caballero and LALITHA Rivers.
[2021-11-13 07:04] LABS: BASOPHILS % (AUTO) 0.4 % (0-1); EOSINOPHILS # (AUTO) 0.1 X10'3 (0-0.9); EOSINOPHILS % (AUTO) 1.3 % (0-6); HEMATOCRIT 34.9 % (42.0-52.0); HEMOGLOBIN 11.8 g/dl (14.0-17.9); LYMPHOCYTES # (AUTO) 1.6 X10'3 (1.1-4.8); LYMPHOCYTES % (AUTO) 21.2 % (21-51); MEAN CORPUSCULAR HEMOGLOBIN 30.9 PG (27.0-31.0); MEAN CORPUSCULAR HGB CONC 33.8 g/dL (33.0-36.5); MEAN CORPUSCULAR VOLUME 91.3 FL (78-98); MEAN PLATELET VOLUME 8.5 FL (7.4-10.4); MONOCYTES # (AUTO) 0.8 X10'3 (0-0.9); MONOCYTES % (AUTO) 11.1 % (2-12); NEUTROPHILS # (AUTO) 4.9 X10'3 (1.8-7.7); PLATELET COUNT 244 X10'3 (140-440); RED BLOOD COUNT 3.82 X10'6 (4.70-6.10); WHITE BLOOD COUNT 7.4 X10'3 (4.5-11.0)
[2021-11-13 07:42] LABS: ALANINE AMINOTRANSFERASE 22 U/L (12-78); ALBUMIN 3.2 G/DL (3.4-5.0); ALKALINE PHOSPHATASE 58 IU/L (46-116); ANION GAP 17 (8-16); ASPARTATE AMINO TRANSFERASE 14 U/L (10-37); BILIRUBIN,TOTAL 0.4 MG/DL (0.1-1.0); BLOOD UREA NITROGEN 70 MG/DL (7-18); BUN/CREATININE RATIO 19.1 (5.4-32.0); CALCIUM 7.7 MG/DL (8.5-10.1); CHLORIDE 103 MMOL/L (99-107); CREATININE 3.66 MG/DL (0.60-1.10); GLUCOSE 91 MG/DL (70-104); MAGNESIUM 2.7 MG/DL (1.5-2.4); POTASSIUM 3.2 MMOL/L (3.5-5.1); SODIUM 145 MMOL/L (135-145); TOTAL CARBON DIOXIDE 25.5 MMOL/L (24-32); TOTAL PROTEIN 6.4 G/DL (6.4-8.2); eGFR 18 ML/MIN
[2021-11-13] MEDS: docusate sod 100mg capsule PO SCH ×2 (07:58→20:15)
[2021-11-13] MEDS: heparin, porcine 5000 units/ml vial SQ SCH ×2 (07:58→20:15)
--- NOTE | 2021-11-13 08:07 | NUR ---
Malnutrition consult: Pt admitted w/ nausea and vomiting for 4 days HEAD TURNING [employer] per EMR. Per MST pt reports 2-13lb wt loss, current chair scaled wt fairly consistent w/ previous wts from this year and prior year. No signs of muscle/fat waisting reported. No edema present and has normal muscle strength per documentation. At this time pt does not meet minimum criteria for malnutrition. Currently on sodium restricted diet, recommend liberalizing to Regular Addendum: 11/13/21 at [address] Amended: Links added.
[2021-11-13] MEDS: K and/or MAG REPLACEMENT MC SCH ×2 (08:08→20:00)
[2021-11-13] MEDS: POTASSIUM BICARB 20meq eff tab 20 MEQ TABLET.EFF PO PRN ×3 (08:08→18:21)
--- NOTE | 2021-11-13 09:04 | NUR ---
[id number] Seamus Wagner smoke 2 + a day and would like 21mg of nicotine patch. Tita [id number]
[2021-11-13] MEDS ORDERED: LORazepam 2 mg/ml vial IV PRN ×3 (09:10)
[2021-11-13] MEDS ORDERED: nicotine 21mg patch - 24 hr TD ONE (09:10)
[2021-11-13] MEDS ORDERED: haloperidol 5mg tablet PO PRN (09:10)
[2021-11-13] MEDS ORDERED: haloperidol lactate 5mg/ml inj IM PRN ×2 (09:10)
[2021-11-13] MEDS: folic acid 1mg tablet PO SCH (11:47)
[2021-11-13] MEDS: multivitamins, therapeutics tablet PO SCH (11:47)
--- NOTE | 2021-11-13 18:25 | NUR ---
Agreed with VALERIA Rivers assessment, and added my own.
[2021-11-14] MEDS: ondansetron/PF 4mg/2ml inj IV PRN ×2 (02:29→20:24)
[2021-11-14 06:00] VITALS: BP 139/93
[2021-11-14] MEDS: normal saline 1000ml 1,000 ML IV SCH ×2 (06:00→08:31)
--- NOTE | 2021-11-14 06:29 | NUR ---
Patient in room ORTHO 4014. I have received report from Joanna RN and had the opportunity to ask questions and assume patient care.
[2021-11-14 06:43] LABS: BASOPHILS % (AUTO) 0.5 % (0-1); EOSINOPHILS # (AUTO) 0.1 X10'3 (0-0.9); EOSINOPHILS % (AUTO) 3.2 % (0-6); HEMATOCRIT 32.7 % (42.0-52.0); HEMOGLOBIN 11.1 g/dl (14.0-17.9); LYMPHOCYTES # (AUTO) 1.4 X10'3 (1.1-4.8); LYMPHOCYTES % (AUTO) 42.3 % (21-51); MEAN CORPUSCULAR HEMOGLOBIN 31.4 PG (27.0-31.0); MEAN CORPUSCULAR HGB CONC 33.8 g/dL (33.0-36.5); MEAN CORPUSCULAR VOLUME 92.8 FL (78-98); MEAN PLATELET VOLUME 8.7 FL (7.4-10.4); MONOCYTES # (AUTO) 0.3 X10'3 (0-0.9); MONOCYTES % (AUTO) 8.9 % (2-12); NEUTROPHILS # (AUTO) 1.4 X10'3 (1.8-7.7); NEUTROPHILS % (AUTO) 45.1 % (42-75); PLATELET COUNT 208 X10'3 (140-440); RED BLOOD COUNT 3.53 X10'6 (4.70-6.10); RED CELL DISTRIBUTION WIDTH 12.9 % (11.5-14.5); WHITE BLOOD COUNT 3.2 X10'3 (4.5-11.0)
[2021-11-14 06:51] LABS: ALANINE AMINOTRANSFERASE 20 U/L (12-78); ALBUMIN 2.9 G/DL (3.4-5.0); ALBUMIN/GLOBULIN RATIO 0.9 (1.1-1.5); ALKALINE PHOSPHATASE 52 IU/L (46-116); AMYLASE 68 U/L (25-115); ANION GAP 9 (8-16); ASPARTATE AMINO TRANSFERASE 13 U/L (10-37); BILIRUBIN,TOTAL 0.2 MG/DL (0.1-1.0); BLOOD UREA NITROGEN 32 MG/DL (7-18); CALCIUM 8.5 MG/DL (8.5-10.1); CHLORIDE 107 MMOL/L (99-107); CREATININE 1.39 MG/DL (0.60-1.10); GLUCOSE 126 MG/DL (70-104); LIPASE 587 U/L (73-393); PHOSPHORUS 2.6 MG/DL (2.3-4.5); POTASSIUM 3.8 MMOL/L (3.5-5.1); SODIUM 143 MMOL/L (135-145); TOTAL CARBON DIOXIDE 26.6 MMOL/L (24-32); eGFR 56 ML/MIN
[2021-11-14] MEDS: docusate sod 100mg capsule PO SCH ×2 (07:16→20:00)
[2021-11-14] MEDS: folic acid 1mg tablet PO SCH (07:16)
[2021-11-14] MEDS: multivitamins, therapeutics tablet PO SCH (07:16)
[2021-11-14] MEDS: heparin, porcine 5000 units/ml vial SQ SCH ×2 (07:16→20:21)
[2021-11-14] MEDS: nicotine 21mg patch - 24 hr TD SCH (07:17)
[2021-11-14 08:00] VITALS: BP_SYST 146; BP_SYST 153; BP_SYST 157; BP_DIAS 94; BP_DIAS 95
[2021-11-14] MEDS: K and/or MAG REPLACEMENT MC SCH ×2 (08:00→20:00)
[2021-11-14 10:00] VITALS: BP 156/89
--- NOTE | 2021-11-14 16:18 | NUR ---
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
[2021-11-14] MEDS ORDERED: buprenorphine/naloxone 8mg/2mg SL tablet SL ONE (16:20)
[2021-11-14] MEDS ORDERED: buprenorphine/naloxone 8MG-2MG SUBlingual film SL ONE ×2 (16:50→22:00)
[2021-11-14 18:00] VITALS: BP 140/87
--- NOTE | 2021-11-14 18:28 | NUR ---
Problems reprioritized. Patient report given, questions answered & plan of care reviewed with Joanna DOTY.
[2021-11-14 20:00] VITALS: BP_SYST 117; BP_SYST 129; BP_SYST 134; BP_DIAS 71; BP_DIAS 72; BP_DIAS 78
[2021-11-14 22:00] VITALS: BP 117/78
--- NOTE | 2021-11-14 22:18 | NUR ---
PT REFUSED SUBOXONE WILL TAKE ONE IN AM PER PT.
[2021-11-15] MEDS: normal saline 1000ml 1,000 ML IV SCH ×2 (05:17→11:50)
[2021-11-15 06:25] LABS: BASOPHILS % (AUTO) 0.4 % (0-1); EOSINOPHILS # (AUTO) 0.1 X10'3 (0-0.9); EOSINOPHILS % (AUTO) 1.8 % (0-6); HEMATOCRIT 33.1 % (42.0-52.0); HEMOGLOBIN 11.2 g/dl (14.0-17.9); LYMPHOCYTES # (AUTO) 1.4 X10'3 (1.1-4.8); LYMPHOCYTES % (AUTO) 34.5 % (21-51); MEAN CORPUSCULAR HEMOGLOBIN 31.9 PG (27.0-31.0); MEAN CORPUSCULAR HGB CONC 33.9 g/dL (33.0-36.5); MEAN PLATELET VOLUME 8.2 FL (7.4-10.4); MONOCYTES # (AUTO) 0.4 X10'3 (0-0.9); MONOCYTES % (AUTO) 9.4 % (2-12); NEUTROPHILS # (AUTO) 2.2 X10'3 (1.8-7.7); NEUTROPHILS % (AUTO) 53.9 % (42-75); PLATELET COUNT 226 X10'3 (140-440); RED BLOOD COUNT 3.52 X10'6 (4.70-6.10); RED CELL DISTRIBUTION WIDTH 12.5 % (11.5-14.5)
[2021-11-15 06:28] VITALS: BP 118/78
--- NOTE | 2021-11-15 06:29 | NUR ---
received report from Joanna, RN
[2021-11-15 06:42] LABS: ALANINE AMINOTRANSFERASE 19 U/L (12-78); ALKALINE PHOSPHATASE 49 IU/L (46-116); AMYLASE 73 U/L (25-115); ANION GAP 4 (8-16); ASPARTATE AMINO TRANSFERASE 13 U/L (10-37); BILIRUBIN,TOTAL 0.2 MG/DL (0.1-1.0); BLOOD UREA NITROGEN 19 MG/DL (7-18); BUN/CREATININE RATIO 17.8 (5.4-32.0); CALCIUM 8.5 MG/DL (8.5-10.1); CHLORIDE 109 MMOL/L (99-107); CREATININE 1.07 MG/DL (0.60-1.10); GLUCOSE 85 MG/DL (70-104); LIPASE 223 U/L (73-393); MAGNESIUM 1.6 MG/DL (1.5-2.4); PHOSPHORUS 2.7 MG/DL (2.3-4.5); POTASSIUM 4.6 MMOL/L (3.5-5.1); SODIUM 144 MMOL/L (135-145); TOTAL CARBON DIOXIDE 31.1 MMOL/L (24-32); eGFR 76 ML/MIN
[2021-11-15] MEDS: ondansetron/PF 4mg/2ml inj IV PRN ×2 (06:56→12:28)
--- NOTE | 2021-11-15 07:56 | NUR ---
Called Dr. Martinez for am dose of suboxone as patient refused his 2200 dose and would like one this am, no response on cell. message was left
[2021-11-15] MEDS: docusate sod 100mg capsule PO SCH (07:57)
[2021-11-15 08:00] VITALS: BP_SYST 128; BP_SYST 141; BP_SYST 146; BP_DIAS 79; BP_DIAS 87; BP_DIAS 91
[2021-11-15] MEDS: K and/or MAG REPLACEMENT MC SCH (08:00)
[2021-11-15] MEDS: multivitamins, therapeutics tablet PO SCH (08:00)
[2021-11-15] MEDS: nicotine 21mg patch - 24 hr TD SCH (08:01)
[2021-11-15] MEDS: folic acid 1mg tablet PO SCH (08:01)
[2021-11-15] MEDS: heparin, porcine 5000 units/ml vial SQ SCH (08:01)
[2021-11-15] MEDS: metoclopramide 5 mg/ml inj IV PRN ×2 (08:03→14:01)
[2021-11-15] MEDS ORDERED: buprenorphine/naloxone 8MG-2MG SUBlingual film SL ONE ×2 (08:15→12:00)
[2021-11-15] MEDS ORDERED: LORazepam 1 MG tablet PO PRN (09:10)
[2021-11-15] MEDS ORDERED: LORazepam 2 mg/ml vial IV PRN (09:10)
--- NOTE | 2021-11-15 10:26 | NUR ---
Met with patient after getting Suboxone to check on him and see how he is doing. Patient said it seems to be helping. I will follow up again with him.
[2021-11-15 10:38] VITALS: BP 119/65
--- NOTE | 2021-11-15 10:48 | NUR ---
PAGER ID: [phone] MESSAGE: [phone], jaime patient is nauseated already gave zofran and reglan. Dr. Martinez started on suboxone therapy. Could we try compazine or a scopalamine patch?? shea [phone]
--- NOTE | 2021-11-15 11:40 | NUR ---
Spoke with MD Martinez via telephone. He did not remember to put in one time suboxone film order prior to DC, orders received.
--- NOTE | 2021-11-15 14:00 | NUR ---
Patient being discharged to home, md did not feel it was necessary that he be sent home with any antiemetics despite him being nauseated and vomiting multiple times this shift.
--- NOTE | 2021-11-15 14:12 | NUR ---
PAGER ID: [phone] MESSAGE: [phone], Wagner patient is nauseated and still vomiting with zofran and reglan. Can i at least send him home ... to the streets with a scopalamine patch ? shea [id number]
[2021-11-15] MEDS ORDERED: scopolamine 1.5mg patch.TD72 (72-hour patch) TD ONE (15:05)
[2021-11-15] MEDS ORDERED: scopolamine 1mg/72 hr patch TD ONE (15:50)
--- NOTE | 2021-11-15 16:10 | NUR ---
spoke with MD garcia about patients persistent nausea; orders received for scopalamine patch for home. [facility] tomorrow morning.
--- NOTE | 2021-11-15 16:33 | NUR ---
Patient showered and provided with clean clothes upon discharge as he is homeless.
--- NOTE | 2021-11-15 17:34 | NUR ---
Patient discharged, ambulated to [facility] and was escorted out. all discharge instructions given to patient. patient showered, ate and was given clean clothes prior to discharge. patient is to follow up in the morning with the [facility] at [facility] and he knows this. advised to drink lots of water. scop patch applied behind right ear for persistent nausea and this is helping.
[2021-11-17] MEDS ORDERED: LORazepam 1 MG tablet PO PRN (09:10)
[2021-11-17] MEDS ORDERED: LORazepam 2 mg/ml vial IV PRN (09:10)
== END 2021-11-15 17:40 | disposition home or self-care (01) | DRG 422 ==
LOC: ER 17:19 → ED HOLD 23:58 → EDBEDREQ 11-13 00:52 → ORTHO 4S 11-13 01:29
PROVIDERS: ADMIT Internal Medicine; ATTEND Internal Medicine
DX: E86.0 Dehydration (principal); N17.0 Acute kidney failure with tubular necrosis; K85.90 Acute pancreatitis without necrosis or infection, unspecified; B19.20 Unspecified viral hepatitis C without hepatic coma; Z60.2 Problems related to living alone; T67.5XXA Heat exhaustion, unspecified, initial encounter; X58.XXXA Exposure to other specified factors, initial encounter; E87.6 Hypokalemia; F10.129 Alcohol abuse with intoxication, unspecified; F15.10 Other stimulant abuse, uncomplicated; F11.23 Opioid dependence with withdrawal; F17.210 Nicotine dependence, cigarettes, uncomplicated; I10 Essential (primary) hypertension; Z56.0 Unemployment, unspecified; Z59.00 Homelessness unspecified; Z88.1 Allergy status to other antibiotic agents; Z88.8 Allergy status to other drugs, medicaments and biological substances; Z79.899 Other long term (current) drug therapy; Z71.6 Tobacco abuse counseling; Z71.51 Drug abuse counseling and surveillance of drug abuser; Y93.89 Activity, other specified; Y92.89 Other specified places as the place of occurrence of the external cause; Y99.8 Other external cause status
CPT/HCPCS: 36415; 71045; 74176; 80053; 81003; 82150; 82550; 82948; 83690; 83735; 84100; 85025; 85610; 87081; 96361; 96374; 96375; 99285; G0378; J1200; J1644; J2405; J2765; J7030

== ENCOUNTER 2021-11-21 13:10 | Emergency (ER) | payer MEDICAID ==
[~2021-11-21] VITALS: Ht 172.7 cm; Wt 80.3 kg
[~2021-11-21 13:10] MED LIST changes: -ARIP5TAB14 PO; -CLIN150C8 PO; -DIPH25CA83 PO; -ESCI20TA PO; -FLUT16SP2 BOTHNARES; -HYDR-3972 PO; -HYDR-4383 PO; -IBUP-1986 PO; -KETO10TA2 PO; -LIDO700A32 TOP; +LISI10TA27 PO; -ONDA4TAB6 PO; -OXYC-145 PO
[2021-11-21 13:23] VITALS: BP 148/105
[2021-11-21] MEDS ORDERED: Cipro HC otic suspension 10ML bottle EACH EAR SCH (20:00)
== END 2021-11-21 16:55 | disposition home or self-care (01) ==
LOC: ER 13:11
DX: H60.92 Unspecified otitis externa, left ear (principal); I10 Essential (primary) hypertension; F12.90 Cannabis use, unspecified, uncomplicated; F15.90 Other stimulant use, unspecified, uncomplicated; Z86.19 Personal history of other infectious and parasitic diseases; Z56.0 Unemployment, unspecified; Z59.00 Homelessness unspecified; Z72.89 Other problems related to lifestyle; Z88.1 Allergy status to other antibiotic agents; Z88.8 Allergy status to other drugs, medicaments and biological substances; Z79.899 Other long term (current) drug therapy
CPT/HCPCS: 99283

== ENCOUNTER 2021-11-27 08:50 | Emergency (ER) | payer MEDICAID ==
[~2021-11-27] VITALS: Ht 172.7 cm; Wt 80.9 kg
[2021-11-27 08:53] VITALS: BP 179/111
[2021-11-27] MEDS ORDERED: clindamycin 150mg capsule PO ONE (10:10)
[2021-11-27] MEDS ORDERED: CLIN300C54 PO ×2 (10:18→10:57)
== END 2021-11-27 11:00 | disposition home or self-care (01) ==
LOC: ER 08:50
DX: K04.7 Periapical abscess without sinus (principal); I10 Essential (primary) hypertension; F12.10 Cannabis abuse, uncomplicated; F15.10 Other stimulant abuse, uncomplicated; Z88.0 Allergy status to penicillin; Z88.1 Allergy status to other antibiotic agents; Z79.899 Other long term (current) drug therapy; Z59.00 Homelessness unspecified; Z56.0 Unemployment, unspecified
CPT/HCPCS: 99283

== ENCOUNTER 2022-04-22 19:50 | Emergency (ER) | payer MEDICAID ==
[~2022-04-22] VITALS: Ht 172.7 cm; Wt 79.5 kg
[~2022-04-22 19:50] MED LIST changes: +CLIN300C54 PO
[2022-04-23] MEDS ORDERED: loperamide 2mg capsule PO ONE (07:55)
[2022-04-23] MEDS ORDERED: normal saline 1000ml 1,000 ML IV ONE (07:55)
[2022-04-23] MEDS ORDERED: ondansetron/PF 4mg/2ml inj IV ONE (07:55)
--- NOTE | 2022-04-23 07:58 | NUR ---
Pt states that he does not do drugs but he drinks alcohol. Pt also states that he drinks a lot of alcohol and he had drinks yesterday
[2022-04-23 08:38] LABS: BASOPHILS % (AUTO) 0.6 % (0-1); EOSINOPHILS % (AUTO) 0.3 % (0-6); HEMATOCRIT 36.2 % (42.0-52.0); HEMOGLOBIN 12.4 g/dl (14.0-17.9); LYMPHOCYTES # (AUTO) 0.3 X10'3 (1.1-4.8); LYMPHOCYTES % (AUTO) 3.7 % (21-51); MEAN CORPUSCULAR HGB CONC 34.3 g/dL (33.0-36.5); MEAN CORPUSCULAR VOLUME 96.2 FL (78-98); MEAN PLATELET VOLUME 7.7 FL (7.4-10.4); MONOCYTES # (AUTO) 0.4 X10'3 (0-0.9); MONOCYTES % (AUTO) 5.5 % (2-12); NEUTROPHILS # (AUTO) 6.8 X10'3 (1.8-7.7); NEUTROPHILS % (AUTO) 89.9 % (42-75); PLATELET COUNT 199 X10'3 (140-440); RED BLOOD COUNT 3.76 X10'6 (4.70-6.10); RED CELL DISTRIBUTION WIDTH 15.1 % (11.5-14.5); WHITE BLOOD COUNT 7.5 X10'3 (4.5-11.0)
[2022-04-23 09:05] LABS: ALANINE AMINOTRANSFERASE 34 U/L (12-78); ALBUMIN 3.4 G/DL (3.4-5.0); ALBUMIN/GLOBULIN RATIO 0.9 (1.1-1.5); ALKALINE PHOSPHATASE 65 IU/L (46-116); ASPARTATE AMINO TRANSFERASE 29 U/L (10-37); BILIRUBIN,TOTAL 0.5 MG/DL (0.1-1.0); BLOOD UREA NITROGEN 31 MG/DL (7-18); BUN/CREATININE RATIO 23.3 (5.4-32.0); CALCIUM 8.3 MG/DL (8.5-10.1); CREATININE 1.33 MG/DL (0.60-1.10); GLUCOSE 105 MG/DL (70-104); LIPASE < 50 U/L (73-393); TOTAL CARBON DIOXIDE 26.5 MMOL/L (24-32); eGFR 59 ML/MIN
[2022-04-23 09:27] LABS: ANION GAP 9 (8-16); CHLORIDE 103 MMOL/L (99-107); POTASSIUM 3.5 MMOL/L (3.5-5.1); SODIUM 138 MMOL/L (135-145)
[2022-04-23] MEDS ORDERED: ONDA8TAB13 PO (09:34)
[2022-04-23] MEDS ORDERED: LOPE2CAP PO (09:34)
[2022-04-23 09:51] VITALS: BP 153/109
== END 2022-04-23 09:55 | disposition home or self-care (01) ==
LOC: ER 19:51
DX: B34.9 Viral infection, unspecified (principal); Z20.822 Contact with and (suspected) exposure to COVID-19; I10 Essential (primary) hypertension; F12.10 Cannabis abuse, uncomplicated; F15.10 Other stimulant abuse, uncomplicated; Z59.00 Homelessness unspecified; Z56.0 Unemployment, unspecified
CPT/HCPCS: 36415; 80053; 83690; 85025; 87502; 87503; 87635; 96361; 96374; 99283; C9803; J2405; J7030

== ENCOUNTER 2022-05-05 09:44 | Emergency (ER) | payer MEDICAID ==
[~2022-05-05] VITALS: Ht 172.7 cm; Wt 79.5 kg
[~2022-05-05 09:44] MED LIST changes: +LOPE2CAP PO; +ONDA8TAB13 PO
[2022-05-05] MEDS ORDERED: LIDOCAINE 5% OINTMENT 35GM TP ONE (10:30)
[2022-05-05] MEDS ORDERED: dexamethasone 4mg/ml inj IM ONE (10:30)
[2022-05-05] MEDS ORDERED: diphenhydrAMINE 25mg capsule PO ONE (10:30)
[2022-05-05] MEDS ORDERED: triamcinolone acetonide 40mg/ml inj IM ONE (10:30)
[2022-05-05] MEDS ORDERED: KEN0.1O TP (10:34)
[2022-05-05] MEDS ORDERED: HYDR-3686 PO (10:34)
[2022-05-05 10:57] VITALS: BP 147/99
== END 2022-05-05 10:59 | disposition home or self-care (01) ==
LOC: ER 09:45
DX: R21 Rash and other nonspecific skin eruption (principal); I10 Essential (primary) hypertension; F12.90 Cannabis use, unspecified, uncomplicated; F15.20 Other stimulant dependence, uncomplicated; Z88.1 Allergy status to other antibiotic agents; Z88.8 Allergy status to other drugs, medicaments and biological substances; Z59.00 Homelessness unspecified; Z56.0 Unemployment, unspecified
CPT/HCPCS: 96372; 99284; J1100; J3301; Q0163

== ENCOUNTER 2023-05-10 09:38 | Emergency (ER) | payer MEDICAID ==
[~2023-05-10] VITALS: Ht 172.7 cm; Wt 90.0 kg
[2023-05-10] MEDS ORDERED: morphine IR (immed. release) 30mg tablet PO STA (10:23)
[2023-05-10] MEDS ORDERED: CLIN300C54 PO (12:09)
[2023-05-10] MEDS ORDERED: LEVO-65 PO (12:09)
[2023-05-10] MEDS ORDERED: clindamycin 150mg capsule PO ONE (12:20)
[2023-05-10] MEDS ORDERED: levoFLOXACIN 250mg tablet PO ONE (12:20)
[2023-05-10 12:58] VITALS: BP 145/101; PULSE 98; RESP 16; TEMP 98.2; O2SAT 100
== END 2023-05-10 13:01 | disposition home or self-care (01) ==
LOC: ER 09:38
DX: S41.132A Puncture wound without foreign body of left upper arm, initial encounter (principal); S41.131A Puncture wound without foreign body of right upper arm, initial encounter; F12.10 Cannabis abuse, uncomplicated; F15.10 Other stimulant abuse, uncomplicated; I10 Essential (primary) hypertension; Z59.00 Homelessness unspecified; Z56.0 Unemployment, unspecified; W54.0XXA Bitten by dog, initial encounter; Y93.89 Activity, other specified; Y92.89 Other specified places as the place of occurrence of the external cause; Y99.8 Other external cause status
CPT/HCPCS: 73090; 99284; J7030